=== PATIENT | female | born 1965 | race Caucasian/White ===

== ENCOUNTER 2017-01-20 20:58 | Emergency (ER) | payer SELFPAY ==
[2017-01-20 21:04] VITALS: BP 130/83; BMI 31.4
--- NOTE | 2017-01-20 22:03 | DR.GENAD ---
HPI - PCP Primary Care Physician: NFD - HPI Comment HPI Comment: WORSE TONIGHT. NO FEVER OR DYSURIA. - Complaint/Symptoms Chief Complaint Doctors Comments: PAIN PERSISTENT WITH NAUSEA. NO HISTORY OF TRAUMA. Chief Complaint:: PT STATES, "SHARP PAIN NEXT TO RIGHT RIBS THAT HAS BEEN OFF AND ON SINCE ABOUT 10 AM THIS MORNING." - Nurses notes reviewed Nurses Notes Review: Yes - Source History Provided: Patient - Mode of Arrival Mode of Arrival: Ambulatory - Timing Onset of Chief Complaint: 01/20/17 Came on: Suddenly - Duration Duration: Constant Duration: Hours - Severity Severity: Moderate PMH - PMH Past Medical History: No Past Surgical History: Yes Surgical History: Appendectomy, Hysterectomy, Other Past Surgical History Comment: BREAST REDUCTION - Family History History of Family Medical Conditions: Yes Family Medical History: Diabetes Mellitus - Social History Alcohol Use: None Do you use any recreational Drugs:: No Lives With: Family Lives Where: Home - infectious screening In the last 2 months have you had wt loss of >10#?: NO Have you had fever, night sweats or hemotysis?: No Have you traveled outside the country in the last 6 months?: No Isolation: Standard ROS - Review of Systems Constitutional: No Symptoms Reported Eyes: No Symptoms Reported ENTM: No Symptoms Reported Respiratoy: No Symptoms Reported Cardiovascular: No Symptoms Reported Gastrointestinal/Abdominal: Abdominal Pain, Nausea Genitourinary: No Symptoms Reported Neurological: No Symptoms Reported Musculoskeletal: Back Pain, Other (RT FLAN PAIN) Integumentary: No Symptoms Reported Hematologic/Lymphatic: No Symptoms Reported Endocrine: No Symptoms Reported All Other Systems: Reviewed and Negative PE - Vital Signs Vitals: Temperature 97.9 F Pulse Rate 86 Respiratory Rate 20 Blood Pressure 130/83 O2 Sat by Pulse Oximetry 97 - General Limitations: No Limitations General Appearance: Alert - Head Head Exam: Normal Inspection - Eyes Eye exam: Normal Appearance - ENT ENT Exam: Normal External Ear Exam External Ear Exam: Normal External Inspection TM/Canal Exam: Bilateral Normal Nose Exam: Normal Nose Exam Mouth Exam: Normal Inspection Throat Exam: Normal Inspection - Neck Neck Exam: Trachea Midline - Chest Chest Inspection: Symmetric Chest Wall Rise - Respiratory Respiratory Exam: Normal Lung Sounds Bilat Respiratory Exam: Bilateral Clear to Auscultation - Cardiovascular Cardiovascular Exam: Regular Rate, Normal Rhythm, Normal Heart Sounds - Abdominal Exam Abdominal Exam: Normal Bowel Sounds, Soft, Tenderness Abdominal Tenderness: RUQ, Moderate - Extremities Extremities Exam: Normal Inspection - Back Back Exam: (R) CVA Tenderness - Neurologic Neurological Exam: Alert, Oriented X3 - Psychiatric Psychiatric Exam: Normal Affect, Normal Mood - Skin Skin Exam: Normal Color MDM - Additional Information Additional Information Obtained From: Family - Differential Diagnosis Differential Diagnosis: UTI, KIDNEY STONE, PUD, PLEURISY, BOWEL OBSTRUCTION Course - Treatment Treatment: SEE ORDERS. - Education/Counseling Education/Counseling: Patient, Family, Education Educated On: Treatment, Diagnosis, Needs for Follow Up ROR - Labs Reviewed Laboratory Results Reviewed?: Yes Result Diagrams: 01/20/17 22:10 01/20/17 22:10 Laboratory: WBC 14.2 X10^3/uL (3.6-10.0) H 01/20/17 22:10 RBC 4.68 X10^6/uL (3.5-5.4) 01/20/17 22:10 Hgb 13.9 g/dL (12.0-16.0) 01/20/17 22:10 Hct 40.4 % (36.0-47.0) 01/20/17 22:10 MCV 86.4 fL (80.0-100.0) 01/20/17 22:10 MCH 29.7 pg (27.0-34.0) 01/20/17 22:10 MCHC 34.4 g/dL (33.0-35.0) 01/20/17 22:10 RDW 13.6 % (11.6-16.5) 01/20/17 22:10 Plt Count 311 X10^3/uL (150.0-450.0) 01/20/17 22:10 MPV 7.8 fL (7.4-11.0) 01/20/17 22:10 Neut % 66.6 % (42.0-75.0) 01/20/17 22:10 Lymph % 25.1 % (21.0-51.0) 01/20/17 22:10 [place] % 5.4 % (0.0-13.0) 01/20/17 22:10 Eos % 1.9 % (0.9-2.9) 01/20/17 22:10 Baso % 1.0 % (0.2-1.0) 01/20/17 22:10 Neut # 9.4 x10^3/uL (2.2-4.8) H 01/20/17 22:10 Lymph # 3.6 X10^3/uL (1.3-2.9) H 01/20/17 22:10 [place] # 0.8 x10^3/uL (0.3-0.8) 01/20/17 22:10 Eos # 0.3 x10^3/uL (0.0-0.2) H 01/20/17 22:10 Baso # 0.1 X10^3/uL (0.0-0.1) 01/20/17 22:10 Absolute Nucleated RBC 0.0 /100WBC 01/20/17 22:10 Sodium 137 mmol/L (136-145) 01/20/17 22:10 Corrected Sodium TNP 01/20/17 22:10 Potassium 4.2 mmol/L (3.5-5.1) 01/20/17 22:10 Chloride 103 mmol/L (98-107) 01/20/17 22:10 Carbon Dioxide 27.8 mmol/L (21-32) 01/20/17 22:10 BUN 9 mg/dL (7-18) 01/20/17 22:10 Creatinine 0.73 mg/dL (0.55-1.02) 01/20/17 22:10 Est GFR (MDRD) Af Amer > 60 (>60) 01/20/17 22:10 Est GFR (MDRD) Non-Af > 60 (>60) 01/20/17 22:10 Glucose 99 mg/dL (65-99) 01/20/17 22:10 Calcium 8.5 mg/dL (8.5-10.1) 01/20/17 22:10 Corrected Calcium TNP 01/20/17 22:10 Total Bilirubin 0.40 mg/dL (0.2-1.0) 01/20/17 22:10 AST 17 Units/L (15-37) 01/20/17 22:10 ALT 38 Units/L (12-78) 01/20/17 22:10 Alkaline Phosphatase 90 Units/L (46-116) 01/20/17 22:10 Total Protein 7.7 g/dL (6.4-8.2) 01/20/17 22:10 Albumin 3.6 g/dL (3.4-5.0) 01/20/17 22:10 Globulin 4.1 g/dL (2.5-4.5) 01/20/17 22:10 Albumin/Globulin Ratio 0.9 Ratio (1.1-2.1) L 01/20/17 22:10 Amylase 42 Units/L (25-115) 01/20/17 22:10 Lipase 154 Units/L (73-393) 01/20/17 22:10 Specimen Type Clean catch urine 01/20/17 22:07 Urine Color Yellow (YELLOW) 01/20/17 22:07 Urine Appearance Clear (CLEAR) 01/20/17 22:07 Urine pH 7.0 (5.0 - 8.0) 01/20/17 22:07 Ur Specific [place] 1.015 (1.000-1.030) 01/20/17 22:07 Urine Protein Negative (NEGATIVE) 01/20/17 22:07 Urine Glucose (UA) Negative (NEGATIVE) 01/20/17 22:07 Urine Ketones Negative (NEGATIVE) 01/20/17 22:07 Urine Occult Blood 1+ (NEGATIVE) 01/20/17 22:07 Urine Nitrite Negative (NEGATIVE) 01/20/17 22:07 Urine Bilirubin Negative (NEGATIVE) 01/20/17 22:07 Urine Urobilinogen Normal (NORMAL) 01/20/17 22:07 Ur Leukocyte Esterase Negative (NEGATIVE) 01/20/17 22:07 Urine RBC None seen /HPF (NEGATIVE) 01/20/17 22:07 Urine WBC None seen /HPF (NEGATIVE) 01/20/17 22:07 Ur Squamous Epith Cells Negative /HPF (NEGATIVE) 01/20/17 22:07 Urine Bacteria Negative /HPF (NEGATIVE) 01/20/17 22:07 Ur Culture Indicated? No/not indicated 01/20/17 22:07 - XRAY XRAY Interpreted by: Radiologist XRAY Findings: REPORT DISCUSS WITH PATIENT. - Diagnosis Discharge Problem: Abdominal pain Qualifiers: Abdominal location: right lower quadrant Qualified Code(s): R10.31 - Right lower quadrant pain - Discharge Plan Disposition: 01 HOME, SELF-CARE Condition: Stable Prescriptions: Ibuprofen [MOTRIN TAB 600 MG *] 600 mg PO TID PRN #20 tab PRN Reason: Pain/Inflammation Ranitidine HCl [ZANTAC TAB 150 MG *] 150 mg PO BID #60 tab - Follow ups/Referrals Follow ups/Referrals: GOKUL OBREGON [STAFF PHYSICIAN] - 3 days NFD,None [Primary Care Provider] - 3 days - Instructions Instructions: Abdominal Pain, Adult, [id number] Additional Instructions: RETURN TO ED IF WORSE.
[2017-01-20 22:22] LABS: BASOPHILS # (AUTO) 0.1 X10^3/uL (0.0-0.1); EOSINOPHILS # (AUTO) 0.3 x10^3/uL (0.0-0.2); EOSINOPHILS % (AUTO) 1.9 % (0.9-2.9); HEMATOCRIT 40.4 % (36.0-47.0); HEMOGLOBIN 13.9 g/dL (12.0-16.0); LYMPHOCYTES # (AUTO) 3.6 X10^3/uL (1.3-2.9); LYMPHOCYTES % (AUTO) 25.1 % (21.0-51.0); MEAN CORPUSCULAR HEMOGLOBIN 29.7 pg (27.0-34.0); MEAN CORPUSCULAR HGB CONC 34.4 g/dL (33.0-35.0); MEAN CORPUSCULAR VOLUME 86.4 fL (80.0-100.0); MEAN PLATELET VOLUME 7.8 fL (7.4-11.0); MONOCYTES # (AUTO) 0.8 x10^3/uL (0.3-0.8); MONOCYTES % (AUTO) 5.4 % (0.0-13.0); NEUTROPHILS # (AUTO) 9.4 x10^3/uL (2.2-4.8); NEUTROPHILS % (AUTO) 66.6 % (42.0-75.0); PLATELET COUNT 311 X10^3/uL (150.0-450.0); RED BLOOD COUNT 4.68 X10^6/uL (3.5-5.4); RED CELL DISTRIBUTION WIDTH 13.6 % (11.6-16.5); WHITE BLOOD COUNT 14.2 X10^3/uL (3.6-10.0)
[2017-01-20 22:29] LABS: BILIRUBIN,URINE NEGATIVE (NEGATIVE); BLOOD/HEMOGLOBIN,URINE 1+ (NEGATIVE); GLUCOSE, URINE NEGATIVE (NEGATIVE); KETONES,URINE NEGATIVE (NEGATIVE); LEUKOCYTE ESTERASE ,URINE NEGATIVE (NEGATIVE); NITRITES,URINE NEGATIVE (NEGATIVE); PROTEIN,URINE NEGATIVE (NEGATIVE); UROBILINOGEN,URINE NORMAL (NORMAL)
[2017-01-20 22:32] LABS: ALANINE AMINOTRANSFERASE 38 Units/L (12-78); ALBUMIN 3.6 g/dL (3.4-5.0); ALKALINE PHOSPHATASE 90 Units/L (46-116); AMYLASE 42 Units/L (25-115); ASPARTATE AMINO TRANSFERASE 17 Units/L (15-37); BLOOD UREA NITROGEN 9 mg/dL (7-18); CALCIUM 8.5 mg/dL (8.5-10.1); CARBON DIOXIDE 27.8 mmol/L (21-32); CHLORIDE 103 mmol/L (98-107); CREATININE 0.73 mg/dL (0.55-1.02); GLUCOSE 99 mg/dL (65-99); LIPASE 154 Units/L (73-393); SODIUM 137 mmol/L (136-145); TOTAL PROTEIN 7.7 g/dL (6.4-8.2); eGFR BLACK RACES > 60 (>60); eGFR NON BLACK RACES > 60 (>60)
[2017-01-20 22:37] LABS: APPEARANCE,URINE CLEAR (CLEAR); BACTERIA,URINE NEGATIVE /HPF (NEGATIVE); COLOR,URINE YELLOW (YELLOW); RBC,URINE NONE SEEN /HPF (NEGATIVE); SQUAMOUS EPITHELIAL CELL,UR NEGATIVE /HPF (NEGATIVE)
--- NOTE | 2017-01-20 22:52 | CT ---
EXAM: CT ABDOMEN AND PELVIS WITHOUT CONTRAST INDICATION: Abdominal pain COMPARISION: No priors available for comparison TECHNIQUE: Axial CT examination of the abdomen and pelvis was performed without intravenous contrast. Coronal a nd sagittal reconstructions were created using the axial data. FINDINGS: The lung bases are clear. The liver, spleen, pancreas, adrenal glands, kidneys, and gallbladder are normal. There is no evidence of biliary ductal dilatation. The aorta and inferior vena cava are norm al in caliber. The bowel loops are nonobstructed. No abnormal mass, lymphadenopathy, or fluid collection. Urinary bladder is normal. There is colonic diverticulosis. The appendix has been removed. The uter us has been removed. The regional skeleton is intact. IMPRESSION: There is colonic diverticulosis. No acute abnormality identified. Reported By:
[2017-01-21] MEDS ORDERED: ZANTAC PO ONE ×2 (00:03→00:11)
[2017-01-21] MEDS ORDERED: MOTRIN TAB 600 MG PO ONE ×2 (00:04→00:11)
== END 2017-01-21 00:22 | disposition home or self-care (01) ==
LOC: ER 21:08
DX: R10.31 Right lower quadrant pain (principal)
CPT/HCPCS: 36415; 74176; 80053; 81001; 82150; 83690; 85025; 99283